=== PATIENT | female | born 1975 | race Caucasian/White ===

== ENCOUNTER 2020-02-27 00:26 | Outpatient (CLI) | payer OTHER, SELFPAY ==
[2020-02-27 18:40] LABS: SARS-CoV-2 RNA PCR Negative
== END 2020-02-27 00:27 | disposition home or self-care (01) ==
LOC: ANHCOVIDDT 00:26
PROVIDERS: Visit Provider Surgery Plastic and Reconstructive Surgery
DX: Z01.818 Encounter for other preprocedural examination (principal); Z11.59 Encounter for screening for other viral diseases
CPT/HCPCS: 87635; C9803; U0003

== ENCOUNTER 2020-02-27 08:49 | Outpatient (CLI) | payer OTHER, SELFPAY ==
--- NOTE | 2020-02-27 08:52 | ECG_ITS ---
Measurements Intervals [place] Rate: 67 P: 40 MN: 114 QRS: 21 QRSD: 105 T: 55 QT: 379 QTc: 403 Interpretive Statements SINUS RHYTHM WITH SHORT [place] INTERVAL DELAYED PRECORDIAL R/S TRANSITION BASELINE ARTIFACT- I, III, AVR, AVL, AVF, V1-V6 BORDERLINE ECG Electronically Signed On 02-27-2020 9:14:12 CDT by Jluis Alicea D.O.
[2020-02-27 09:13] LABS: Hematocrit 39.2 % (37.0-47.0); Hemoglobin 13.6 g/dL (12.0-15.0)
== END 2020-02-27 08:50 | disposition home or self-care (01) ==
PROVIDERS: Anesthesiology; PCP Family Medicine; Visit Provider Surgery Plastic and Reconstructive Surgery
DX: L57.4 Cutis laxa senilis (principal); R94.31 Abnormal electrocardiogram [ECG] [EKG]
CPT/HCPCS: 36415; 85014; 85018; 93005

== ENCOUNTER 2020-03-01 00:42 | Day surgery (SDC) | payer OTHER, SELFPAY ==
[2020-02-23 10:27] VITALS: BMI 29.2
[2020-03-01] VITALS (43 sets, daily range): BP systolic 52–104; BP diastolic 25–77; PULSE 58–107; RESP 10–22; TEMP 36.3–37.7; O2SAT 94–100
[2020-03-01 06:28] LABS: Urine Cotinine NEGATIVE
[2020-03-01] MEDS: LACTATED RINGERS 1,000 ML 30 ML IV CONT ×2 (06:30→11:53)
--- NOTE | 2020-03-01 07:01 | WPDHPUPDATE1 ---
History and Physical Update Update Date/Time: 03/01/20 07:01 History and Physical has been reviewed, including an updated exam of the patient. There are NO changes in the patient's condition. Risks, benefits, and alternatives have been discussed and questions answered. Patient agrees to proceed with procedure.
--- NOTE | 2020-03-01 07:02 | PM.PROC ---
Procedure Note - Detailed Date of procedure: 03/01/20 Pre-op diagnosis: skin laxity Localized adiposity Post-op diagnosis: same Procedure performed: 1. Progressive tension abdominoplasty 2. Suction lipectomy abdomen Description of procedure: She is here today for abdominoplasty and suction lipectomy. Previously and again today the risks, benefits, alternatives were discussed in extensive detail. I wanted her to be very realistic about the risks involved as well as expectations. We discussed aftercare and what to monitor for. I was very upfront about the risks of wound breakdown leading to loss of skin, open wounds, and need for additional procedures with permanent abdominal deformity. We discussed DVT/PE risks and management. Made sure answered all of her questions to her satisfaction today and consent was obtained. She was marked in the preoperative holding area with their verification. The patient was taken to the operating room placed supine on the operating table. Anesthesia was provided by anesthesiology. A white catheter was started. She was prepped and draped in a standard sterile fashion. A surgical time-out was taken. I placed the patient in a flexed position to verify the upper and lower markings would reach. I then placed her supine. A thorough abdominal examination was completed. Stab incisions were made and used tumescent solution. Using the S.A.F.E. technique I completed suction lipectomy of the marked areas throughout the abdomen extending laterally until a smooth a rolling pinch test. I was careful to protect her port which had been identified preoperatively. A 10 blade was used to make the upper incision. I continued dissection down to the level of fascia. Elevated just what was necessary for repair of the diastasis and discontinuous undermining otherwise. I then again flexed the bed to verify the upper skin flap would reach the lower markings without tension. Once verified I placed her supine once again and a 10 blade used to make the lower incision. I elevated up to level the umbilicus and left the umbilicus intact on a well-vascularized stalk. The intervening tissue was removed. A 2 mm blunt cannula and Exparel which was mixed 20 cc in 100 cc for a total volume of 120 cc I injected deep to the fascia bilaterally as well as along the incision lines. I plicated the diastasis recti using 0 PDO stratafix barbed suture. This was in 2 separate layers using 2 separate sutures as well. I repaired around the umbilicus leaving plenty of room for well-vascularized stalk of the umbilicus with 2-0 PDS. The patient was flexed and starting from superior to inferior began plication using 2-0 Vicryl to obliterate all space in a standard progressive tension fashion. At the umbilicus I marked out the location of the skin and inset this with 3-0 Monocryl and 4-0 nylon. I continued the remainder of the plication using 2-0 Vicryl until I reached my lower planned scar line. I trimmed any excess skin of the upper flap making sure this was a tension-free closure. I then approximated using a 3 point suture with 2-0 Vicryl followed by 3-0 stratafix ,running subcuticular 4-0 Monocryl, and tissue glue. Fluffs and an abdominal binder were placed. The patient was transferred to the bed in a flexed position. Awoken and taken to the PACU without difficulty. All instrument and sponge counts were correct at the end of the case. Surgeon: Randall Vegas MD Estimated blood loss (mL): 30 Drains: No Packing: No Pathology: none sent Complications: No immediate complications Condition: stable Disposition: PACU Findings: Suction lipectomy total volume 1,000 cc Abdominoplasty weight 2,187 grams
--- NOTE | 2020-03-01 07:08 | WPDANESEPPF ---
Anes - Initial Pre Proc Eval Procedure: Operation Date: 03/01/20 07:30 Proposed Procedures p Abdominoplasty, - Randall Vegas MD s Liposuction of Abdomen - Randall Vegas MD Date/Time: 03/01/20 07:08 Surgeon: Randall Vegas MD Pre Op Diagnosis: skin laxity Patient Data Age: 44 Gender: F Height: 5 ft 4 in Weight: 77.11 kg Allergies Allergy/AdvReac Type Severity Reaction Status Date / Time No Known Allergies Allergy Unverified 02/23/20 10:28 Home Medications Medication Instructions Recorded Confirmed Type biotin 1 mg capsule 1 mg PO DAILY 12/13/19 02/23/20 History norethindrone (contraceptive) 0.35 0.35 mg PO QPM 12/13/19 02/23/20 History mg tablet diphenhydramine-acetaminophen 1 tablet PO HS 02/23/20 02/23/20 History [Tylenol PM Extra Strength] melatonin 1 tablet PO DAILY 02/23/20 02/23/20 History potassium citrate 20 meq PO DAILY 02/23/20 02/23/20 History carisoprodol 350 mg tablet 350 mg PO TID PRN #21 tablet 02/26/20 02/26/20 Rx oxycodone-acetaminophen 5 mg-325 1 tablet PO Q6H PRN #15 tablet 02/26/20 02/26/20 Rx mg tablet Laboratory Tests 03/01/20 06:06 Cotinine Negative Patient hx anesthesia problems: none Family hx anesthesia problems: post op nausea/vomiting PMFSH Past Medical History Medical History (Updated 03/01/20 @ 07:09 by Sandro Mcneil MD) Hx of migraines Surgical History Surgical History History of History of cholecystectomy History of laparoscopic adjustable gastric banding Family History Family History Sibling Aortic dissection H/O aortic valve repair Mother , from ovarian cancer in 2011 Ovarian cancer Father Malignant neoplasm of prostate Social History Social History Smoking status: Never smoker Alcohol intake: never Substance use: never Anes - Eval Final PreProcedure Day of Procedure 03/01/20 07:08 Patient weight: overweight Heart: regular rate and rhythm Lungs: clear to auscultation Airway: Mallampati scale class II Neurological: alert and oriented Last oral intake: >/= 8 hours ASA classification: II Emergent: no Anesthetic plan: proceed Anesthesia type and monitoring: general ETT and standard monitoring Informed Consent: The patient's anesthetic plan and its attendant risks and benefits were discussed with the patient/family/POA. Questions were solicited and answers provided to the satisfaction of the patient/family/POA.
[2020-03-01] MEDS: ceFAZolin 2 GM/D5W 50 ML 2 GM/50 ML BAG IVPB (07:28)
--- NOTE | 2020-03-01 10:57 | SUR.OPER ---
EBL:50cc
--- NOTE | 2020-03-01 11:04 | SUR.OPER ---
Urine 3254cc
[2020-03-01] MEDS: MORPHINE SULFATE 2 MG/ML INJ IV PUSH ×2 (14:22→16:38)
[2020-03-01] MEDS: LACTATED RINGERS 1,000 ML 125 ML IV CONT ×2 (14:23→23:38)
[2020-03-01] MEDS: SCOPOLAMINE 1.5 MG PATCH TRANSDERM (14:30)
[2020-03-01] MEDS: carisoprodoL 350 MG TABLET PO (15:22)
--- NOTE | 2020-03-01 16:05 | PC.NURSE ---
Patient transferred to post room #277 via stretcher. Support person present. Oriented to unit, room, information board. Patient verbalizes understanding.
[2020-03-01] MEDS: ONDANSETRON INJ 4 MG/2 ML VIAL IV PUSH (16:36)
--- NOTE | 2020-03-01 19:31 | PC.NURSE ---
1829 Patient called out and said she felt like she was going to pass out. RN to room, patient was groggy, pale, had ringing in her ears and her blood pressure was low (55/25, heart rate 58), see vital signs for frequents. RN called out for assistance, Dennis Connell and Brinda Jackson came. Patient was on LR @ 125ml/hr, Brinda Jackson started giving patient a bolus. RN started frequent vital signs. Patient said that she was hot, covers removed and fan brought in. Dennis Connell RN called Dr. Vegas with an update, orders received to continue bolus of LR, monitor patient and he would be in to see her. A phone call to the patient's was made to let him know what was going on. 1904 Patient ate a popsicle, tolerated well. Per patient she had taken a pill earlier in the day and she felt like it wasn't able to go all the way down due to her Lap Band surgery a few years ago. She also stated she has had mucus in her chest and she tried to cough but was unable to. Lungs are clear with auscultation. 1921-MD called, advised him that patient was feeling much better, no chest pain, no calf pain, no respiratory distress. Her blood pressure was still low but has improved since last call (83/40, heart rate 86). MD advised to continue to monitor and he would be here this evening. 1944-Patient is resting comfortably, her 1000ml bolus of LR is complete, will resume LR to 125ml/hr.
[2020-03-01 21:24] LABS: Basophils Percent Auto 0.2 % (0.2-1.2); Hematocrit 26.1 % (37.0-47.0); Hemoglobin 8.9 g/dL (12.0-15.0); Immature Granulocyte Absolute 0.04 K/mm3 (0.00-0.031); Immature Granulocyte Percent A 0.3 % (0-0.5); Lymphocytes Absolute Auto 0.55 K/mm3 (0.9-3.2); Lymphocytes Percent Auto 3.5 % (18.3-44.2); Mean Corpuscular HGB Conc 34.1 g/dl (32-36); Mean Corpuscular Hemoglobin 30.6 pg (26-34); Mean Corpuscular Volume 89.7 fl (80-100); Mean Platelet Volume 10.2 fl (7.4-10.4); Monocytes Absolute Auto 1.1 K/mm3 (0.1-0.6); Monocytes Percent Auto 7.3 % (2.6-8.5); Neutrophils Absolute Auto 13.8 K/mm3 (1.3-6.7); Neutrophils Percent Auto 88.7 % (45.5-73.1); Platelet Count Result 288 k/mm3 (150-375); Red Blood Count 2.91 M/mm3 (4.2-5.4); Red Cell Distribution Width 14.1 % (11.5-14.5); White Blood Count 15.6 K/mm3 (4.5-10.0)
--- NOTE | 2020-03-01 21:26 | WPDPN ---
Progress Note: A&P Assessment and Plan (1) Skin laxity: Code(s): L57.4 - Cutis laxa senilis Status: Acute Assessment and Plan: She appears to have residual anesthesia effect / vagal response. 1 litter bolus complete. Will check CBC / BMP. Hold narcotic pain medication for now and give Ibropfen as able to take. I see no evidence of pulmonary or cardiac event. No evidence of DVT/PE. No evidence of GI injury. No evidence of renal concern. No evidence of neurological change. No evidence of hematoma / bleeding. Above further supported by symptoms recurring with examination. Will follow closely. (2) Localized adiposity: Code(s): E65 - Localized adiposity Status: Acute (3) BMI 29.0-29.9,adult: Code(s): Z68.29 - Body mass index (BMI) 29.0-29.9, adult Status: Acute (4) History of : Code(s): Z98.891 - History of uterine scar from previous surgery Status: Acute (5) History of cholecystectomy: Code(s): Z90.49 - Acquired absence of other specified parts of digestive tract Status: Acute (6) History of laparoscopic adjustable gastric banding: Code(s): Z98.84 - Bariatric surgery status Status: Acute Review of Systems Constitutional: Constitutional: Reports as per HPI Eyes: Eyes: Denies blurry vision and Denies photophobia Cardiovascular: Cardiovascular: Denies chest pain, Reports lightheadedness and Denies palpitations Respiratory: Respiratory: Denies chest congestion, Denies dyspnea and Denies wheezing Gastrointestinal: Gastrointestinal: Reports no additional gastrointestinal complaints and Reports abdominal pain Musculoskeletal: Musculoskeletal: Reports back pain and Denies neck pain Exam Const: Other: Comfortable. Able to answer questions without difficulty. Resp: Effort & Inspection: normal respiratory effort Auscultation: no wheezes Cardio: Rate: regular rate Other: Normal rate. After adjusting dressings / exam she did develop episode of tachycardia. GI: GI Palp: Yes Soft to palpation Other: Her abdomen is soft. No hematoma. No seroma. Good color / capillary refill. No rebound tenderness. Urinary Catheter: Urinary Catheter: urine clear Skin: General skin exam: normal color Other: 1 minute after examining she did become pale briefly. Extrem: Other: No calf tenderness. Negative Homann's. Psych: Mental Status: mental status grossly normal Objective Data Vital Signs Vital Signs: Vital Signs - 24 hr 03/01/20 06:01 03/01/20 11:32 03/01/20 11:45 Temperature 36.3 C L 36.6 C Pulse Rate 85 63 84 Respiratory Rate 16 10 L Blood Pressure 104/50 L 80/41 L 76/49 L Pulse Oximetry 100 95 95 03/01/20 12:00 03/01/20 12:15 03/01/20 12:30 Temperature Pulse Rate 83 78 64 Respiratory Rate 16 13 12 Blood Pressure 88/48 L Pulse Oximetry 94 95 95 03/01/20 12:45 03/01/20 13:00 03/01/20 13:15 Temperature Pulse Rate 64 73 78 Respiratory Rate 13 10 L 12 Blood Pressure 84/42 L 89/77 L 83/44 L Pulse Oximetry 97 96 95 03/01/20 13:30 03/01/20 13:45 03/01/20 14:00 Temperature 37.7 C H Pulse Rate 82 82 75 Respiratory Rate 13 15 16 Blood Pressure 88/42 L 88/42 L 98/53 L Pulse Oximetry 95 95 97 03/01/20 14:15 03/01/20 15:00 03/01/20 16:00 Temperature 37.6 C H Pulse Rate 84 73 79 Respiratory Rate 16 16 20 Blood Pressure 95/46 L 78/42 L 80/48 L Pulse Oximetry 97 96 99 03/01/20 17:00 03/01/20 18:25 03/01/20 18:35 Temperature Pulse Rate 68 58 L 78 Respiratory Rate Blood Pressure 75/42 L 55/25 L 56/26 L Pulse Oximetry 97 97 03/01/20 18:40 03/01/20 18:45 03/01/20 18:50 Temperature Pulse Rate 76 77 66 Respiratory Rate Blood Pressure 62/34 L 60/31 L 52/29 L Pulse Oximetry 97 96 03/01/20 18:55 03/01/20 19:00 03/01/20 19:05 Temperature Pulse Rate 81 73 Respiratory Rate 22 H Blood Pressure 60/37 L 78/36 L 77/41 L Pulse Oximetry 03/01/20 19:10
[2020-03-01 21:36] LABS: Blood Urea Nitrogen 13 mg/dL (7-17); Calcium 7.7 mg/dL (8.4-10.2); Carbon Dioxide 25 mmol/L (22-30); Chloride 106 mmol/L (98-107); Estimated CRCL calculation 87 ml/min; Estimated Glomerular Filt Rate > 60; Glucose 133 mg/dL (65-105); Potassium 4.4 mmol/L (3.4-5.0); Sodium 134 mmol/L (137-145)
[2020-03-01 21:39] LABS: Band Neutrophils Percent 13 % (0-6); Lymphocytes Absolute Manual 0.78 K/mm3 (1.1-4.5); Monocytes Absolute Manual 0.78 K/mm3 (0.1-0.90); Monocytes Percent Manual 5 % (3-9); Neutrophils Absolute Manual 14.04 K/mm3 (1.7-7.2); Neutrophils Percent Manual 77 % (46-73); Platelet Estimate Adequate (Adequate); Total Cells Counted 100
[2020-03-01] MEDS: IBUPROFEN 600 MG TABLET PO (21:54)
[2020-03-02] VITALS (10 sets, daily range): BP systolic 82–96; BP diastolic 28–52; PULSE 68–95; RESP 16; TEMP 37.1; O2SAT 98–100
[2020-03-02] MEDS: IBUPROFEN 600 MG TABLET PO (04:03)
--- NOTE | 2020-03-02 07:21 | WPDPN ---
Progress Note: A&P Assessment and Plan (1) Skin laxity: Code(s): L57.4 - Cutis laxa senilis Status: Acute Assessment and Plan: She has significant improvement today. Doing very well. We will plan for discharge later today when: Ambulating Tolerating p.o. Pain controlled Today we had a lengthy discussion about her care afterwards. What monitor for. At this point she is having no more of the episode she had last night. She states she has had these after anesthesia in the past which resolved. I see no evidence of cardiopulmonary events. No evidence of DVT or PE. She is doing very well. She understands she needs to have someone with her. If she has repeat events or medical emergency to dial 911/proceed to the emergency room. With any other questions to reach out to us at any point we are always available to discuss. (2) Localized adiposity: Code(s): E65 - Localized adiposity Status: Acute (3) BMI 29.0-29.9,adult: Code(s): Z68.29 - Body mass index (BMI) 29.0-29.9, adult Status: Acute (4) History of : Code(s): Z98.891 - History of uterine scar from previous surgery Status: Acute (5) History of cholecystectomy: Code(s): Z90.49 - Acquired absence of other specified parts of digestive tract Status: Acute (6) History of laparoscopic adjustable gastric banding: Code(s): Z98.84 - Bariatric surgery status Status: Acute Time Spent With Patient Time with patient: 15 - 25 minutes Review of Systems Constitutional: Constitutional: Reports as per HPI Eyes: Eyes: Denies blurry vision and Denies photophobia Cardiovascular: Cardiovascular: Denies chest pain, Denies lightheadedness and Denies palpitations Respiratory: Respiratory: Denies chest congestion, Denies dyspnea and Denies wheezing Gastrointestinal: Gastrointestinal: Reports no additional gastrointestinal complaints Exam Const: Other: Very comfortable today. Alert and oriented. Resp: Effort & Inspection: normal respiratory effort Auscultation: no wheezes Cardio: Rate: regular rate GI: GI Palp: Yes Soft to palpation Other: Her abdomen is soft. No hematoma. No seroma. Good color / capillary refill. No rebound tenderness. Skin: General skin exam: normal color Other: Good color and capillary refill. Extrem: Other: No calf tenderness. Negative Homann's. Psych: Mental Status: mental status grossly normal Objective Data Vital Signs Vital Signs: Vital Signs - 24 hr 03/01/20 11:32 03/01/20 11:45 03/01/20 12:00 Temperature 36.6 C Pulse Rate 63 84 83 Respiratory Rate 10 L 16 Blood Pressure 80/41 L 76/49 L 88/48 L Pulse Oximetry 95 95 94 03/01/20 12:15 03/01/20 12:30 03/01/20 12:45 Temperature Pulse Rate 78 64 64 Respiratory Rate 13 12 13 Blood Pressure 84/42 L Pulse Oximetry 95 95 97 03/01/20 13:00 03/01/20 13:15 03/01/20 13:30 Temperature Pulse Rate 73 78 82 Respiratory Rate 10 L 12 13 Blood Pressure 89/77 L 83/44 L 88/42 L Pulse Oximetry 96 95 95 03/01/20 13:45 03/01/20 14:00 03/01/20 14:15 Temperature 37.7 C H Pulse Rate 82 75 84 Respiratory Rate 15 16 16 Blood Pressure 88/42 L 98/53 L 95/46 L Pulse Oximetry 95 97 97 03/01/20 15:00 03/01/20 16:00 03/01/20 17:00 Temperature 37.6 C H Pulse Rate 73 79 68 Respiratory Rate 16 20 Blood Pressure 78/42 L 80/48 L 75/42 L Pulse Oximetry 96 99 97 03/01/20 18:25 03/01/20 18:35 03/01/20 18:40 Temperature Pulse Rate 58 L 78 76 Respiratory Rate Blood Pressure 55/25 L 56/26 L 62/34 L Pulse Oximetry 97 97 03/01/20 18:45 03/01/20 18:50 03/01/20 18:55 Temperature Pulse Rate 77 66 Respiratory Rate Blood Pressure 60/31 L 52/29 L 60/37 L Pulse Oximetry 96 03/01/20 19:00 03/01/20 19:05 03/01/20 19:10 Temperature Pulse Rate 81 73 86 Respiratory Rate 22 H Blood Pressure 78/36 L 77/41 L 83/40 L Pulse Oximetry 98 03/01/20 19:15 03/01
--- NOTE | 2020-03-02 07:34 | PM.DS ---
DS: Admitting Diagnosis Admitting Diagnosis Admitting Diagnosis: Cutis laxa senilis Localized adiposity DS: Discharge Diagnosis Discharge Diagnosis (1) Localized adiposity: Code(s): E65 - Localized adiposity Status: Acute Assessment and Plan: s/p progressive tension abdominoplasty and suction lipectomy. (2) Skin laxity: Code(s): L57.4 - Cutis laxa senilis Status: Acute DS: Summary Time Spent with Patient Time attestation: Total time spent providing and/or coordinating discharge services: 20 minutes Patient was admitted underwent progressive tension abdominoplasty and suction lipectomy. Postoperatively she had some episodes of lightheadedness. No evidence of cardiovascular or pulmonary event. She states she has had these episodes with anesthesia in the past. By postoperative morning 1 she was doing much better. Will plan for discharge home. Exam Const: Other: Very comfortable today. Alert and oriented. Resp: Effort & Inspection: normal respiratory effort Auscultation: no wheezes Cardio: Rate: regular rate GI: GI Palp: Yes Soft to palpation Other: Her abdomen is soft. No hematoma. No seroma. Good color / capillary refill. No rebound tenderness. Skin: General skin exam: normal color Other: Good color and capillary refill. Extrem: Other: No calf tenderness. Negative Homann's. Psych: Mental Status: mental status grossly normal DS: Data Data Completed and Pending Labs on day of discharge: Labs from last 24 hours 03/01/20 03/01/20 21:20 21:20 WBC 15.6 H RBC 2.91 L Hgb 8.9 L D Hct 26.1 L MCV 89.7 MCH 30.6 MCHC 34.1 RDW 14.1 Plt Count 288 MPV 10.2 Immature Gran % (Auto) 0.3 Neut % (Auto) 88.7 H Lymph % (Auto) 3.5 L [place] % (Auto) 7.3 Eos % (Auto) 0.0 Baso % (Auto) 0.2 Lymph # (Auto) 0.55 L [place] # (Auto) 1.1 H Eos # (Auto) 0.0 Baso # (Auto) 0.0 Abs Immat Gran (auto) 0.04 H Absolute Neuts (auto) 13.8 H Absolute Nucleated RBC 0.0 Total Counted 100 Neutrophils % (Manual) 77 H Band Neutrophils % 13 H Lymphocytes % (Manual) 5.0 L Monocytes % (Manual) 5 Nucleated RBC % 0.0 Abs Neuts (Manual) 14.04 H Abs Lymphs (Manual) 0.78 L Abs Monocytes (Manual) 0.78 Platelet Estimate Adequate Sodium 134 L Potassium 4.4 Chloride 106 Carbon Dioxide 25 BUN 13 Creatinine 0.70 Estim Creat Clear Calc 87 Estimated GFR > 60 Glucose 133 H Calcium 7.7 L Discharge Plan Discharge Patient Disposition: Home, Self-Care Discharge Instructions: POST OPERATIVE DISCHARGE INSTRUCTIONS FOR Abdominoplasty / Liposuction RANDALL VEGAS M.D. [facility] [address] [facility] [address] [address] [place] [address] [address] for 24 hours after anesthesia and while you are taking pain medication. Take all prescribed medication as directed Diet as tolerated. No lifting or activity that raises blood pressure for 48 hours. Regular walking / ambulation. No showering until directed to. Once you shower do not take pain medication before showering as the combination of medication and heat may cause you to feel dizzy or pass out. No pools or tubs for 2 weeks. Call with any questions or concerns. Dressing Care: May shower in 24 hours. Continue abdominal binder lightly applied 23 hours per day. Slowly stand up straight as tolerated over the next week. No lifting more than 20 pounds or straining for 6 weeks. Remove scopolamine patch 72 hours after surgery. Have someone with you for next 48 hours. If you have any questions or concerns, please call the office . If it is after hours you will be directed to the director occupational exchange. Shortness of breath, chest pain, or other medical emergency dial 911 / proceed to the Emergency Room. Follow-up/Referrals: Randall Vegas MD [Physician] - 1 Week Discharge Medications: New docusate sodium 100 mg C
--- NOTE | 2020-03-02 10:12 | WPDANESPN ---
Anes - Prog Note Post-Op Date/Time: 03/02/20 10:12 Cardiovascular status: normal Respiratory status: normal Airway patency: baseline Mental status: baseline Post-Op hydration status: normal Vital Signs: Last Vital Signs Temp 37.1 C 03/02/20 07:15 Pulse 80 03/02/20 07:15 Resp 16 03/02/20 07:15 BP 96/48 L 03/02/20 07:15 Pulse Ox 99 03/02/20 07:15 I/O: Intake & Output 03/01/20 03/02/20 03/02/20 23:59 07:59 15:59 Intake Total 1200 300 Output Total 750 300 Balance 450 0 Laboratory Tests 03/01/20 21:20 03/01/20 21:20 03/01/20 03/01/20 21:20 21:20 WBC 15.6 H RBC 2.91 L Hgb 8.9 L D Hct 26.1 L MCV 89.7 MCH 30.6 MCHC 34.1 RDW 14.1 Plt Count 288 MPV 10.2 Immature Gran % (Auto) 0.3 Neut % (Auto) 88.7 H Lymph % (Auto) 3.5 L [place] % (Auto) 7.3 Eos % (Auto) 0.0 Baso % (Auto) 0.2 Lymph # (Auto) 0.55 L [place] # (Auto) 1.1 H Eos # (Auto) 0.0 Baso # (Auto) 0.0 Abs Immat Gran (auto) 0.04 H Absolute Neuts (auto) 13.8 H Absolute Nucleated RBC 0.0 Total Counted 100 Neutrophils % (Manual) 77 H Band Neutrophils % 13 H Lymphocytes % (Manual) 5.0 L Monocytes % (Manual) 5 Nucleated RBC % 0.0 Abs Neuts (Manual) 14.04 H Abs Lymphs (Manual) 0.78 L Abs Monocytes (Manual) 0.78 Platelet Estimate Adequate Sodium 134 L Potassium 4.4 Chloride 106 Carbon Dioxide 25 BUN 13 Creatinine 0.70 Estim Creat Clear Calc 87 Estimated GFR > 60 Glucose 133 H Calcium 7.7 L Post-procedural complaints: none Patient Feedback: Patient satisfied with anesthetic care.
[2020-03-02] MEDS: DOCUSATE SODIUM 100 MG CAPSULE PO (10:31)
[2020-03-02] MEDS: ENOXAPARIN 40 MG/0.4 ML SYRINGE SUB-Q (10:31)
== END 2020-03-02 14:20 | disposition home or self-care (01) ==
LOC: ANHSURGERY 07:24 → ANHOB2 13:52
PROVIDERS: PCP Family Medicine; Visit Provider Surgery Plastic and Reconstructive Surgery
PROC: (CPT 15830; principal; 2020-03-01 07:30)
PROC: (CPT 15877; 2020-03-01 07:30)
DX: Z41.1 Encounter for cosmetic surgery (principal); L57.4 Cutis laxa senilis; E65 Localized adiposity; Z98.84 Bariatric surgery status
CPT/HCPCS: 15830; 15847; 15877; 36415; 80048; 80307; 85025; 99199; A9270; C9290; J0171; J0690; J1100; J1170; J1650; J2250; J2270; J2405; J2704; J3010; J7120